=== PATIENT | male | born 1960 | race African-American/Black ===

== ENCOUNTER 2019-06-15 12:24 | Emergency (ER) | payer MEDICARE, MEDICAID, SELFPAY ==
--- NOTE | 2019-06-15 12:31 | ED_ITS ---
I attest that this documentation has been prepared under the direction and in the presence of Sam Lopez MD. Ladan Loya, Gregoribnirav 06/15/19;12:39 HPI - CPR General Chief Complaint: Cardiac Arrest/CPR Stated Complaint: Carido Arrest Time Seen by Provider: 06/15/19 12:24 Source: EMS Mode of arrival: EMS Limitations: clinical condition History of Present Illness HPI narrative: A 58 y/o male presents to the ED from a nursing facility, via EMS, unresponsive. Per EMS, nursing staff gave the pt his medication 30 min prior and when nursing staff returned with his lunch the pt was unresponsive. Pt was found to be asystole upon EMS arrival but was warm to the touch. Pt was given 3 Epinephrine en route with no change. A complete HPI is limited due to clinical condition. Onset (ago): minute(s) Place: NH/SNF Treatments prior to arrival: other (3 Epinephrine) Related Data Allergies Allergy/AdvReac Type Severity Reaction Status Date / Time meropenem Allergy Unknown Verified 06/15/19 12:38 Review of Systems Review of Systems: ROS unobtainable: Yes unobtainable due to medical condition [facility] Social History Social History Gender identity (if verbalized by the patient): Male Comments No PMHx or PSHx on file. No PCP on file Exam Const: Other: Unresponsive, severe distress HENMT: Other: ET tube in place Eyes: Other: Pupils fixed and dilated Chest: Other: good chest rise with bagging Resp: Other: bilateral breath sounds with bagging Cardio: Other: No central pulses Skin: Other: Warm Neuro: General: other (Unresponsive) Course Course Emergency Course: He arrived to the ED after unknown down time and at least 15 mintues of CPR with the patient in asystole throughout. CPR was continued and he was given one more round of epi while he was placed on the monitor. a pulse and rythm check was then done. He had no pulse and monitor showed asystole. He was pronounced at that time. Vital Signs Vital signs: Vital Signs Temperature 30.2 C L 06/15/19 12:32 Temperature 30.2 C L 06/15/19 12:32 Critical Care Time Critical Care Time Critical Care Time: Yes Total Critical Care Time: 15 Discharge Plan Discharge Clinical Impression: Cardiac arrest Patient Disposition: Condition: Interventions: Discharge Disposition Last Done: 06/15/19 14:20 IV Removed Last Done: 06/15/19 14:24 IV Stop Time Documented Last Done: 06/15/19 14:24 Follow-up/Referrals: UNKNOWN,DOCTOR [Primary Care Provider] - Discharge Date/Time: 06/15/19 14:00 I personally performed the services described in this documentation. All medical record entries made by the scribe were at my direction and in my presence. I have reviewed the chart and discharge instructions and agree that the record reflects my personal performance and is accurate and complete. Sam Lopez MD 06/15/19;[id number]
[2019-06-15 12:32] VITALS: TEMP 30.2
--- NOTE | 2019-06-15 13:11 | PC.NURSE ---
MTS notified. stated patient was not a candidate since he was recently tested for the mayen virus on 06/04/19. Patients test results were negative. Talked with Referal # is [id number]
== END 2019-06-15 14:00 | disposition expired ==
PROVIDERS: Emergency Provider Emergency Medicine
DX: I46.9 Cardiac arrest, cause unspecified (principal)
CPT/HCPCS: 92950; 99285